=== PATIENT | male | born 1940 | race Caucasian/White ===

== ENCOUNTER → 2020-09-27 | Outpatient (CLI) | payer MEDICARE | LOC: MRI 10:15 | DX: R41.89 Other symptoms and signs involving cognitive functions and awareness (principal); Z86.79 Personal history of other diseases of the circulatory system; R41.3 Other amnesia; G30.9 Alzheimer's disease, unspecified; F01.50 Vascular dementia, unspecified severity, without behavioral disturbance, psychotic disturbance, mood disturbance, and anxiety | CPT/HCPCS: 70496; 70551; Q9963 ==

== ENCOUNTER → 2020-12-02 | Outpatient (CLI) | payer MEDICARE ==
[2020-12-02 09:55] LABS: RBC (AUTOMATED) 100 10^6 (0); WBC (AUTOMATED 6 10^3 (0-5)
[2020-12-02 09:59] LABS: GLUCOSE,CSF 72 mg/dL (50-80); TOTAL PROTEIN,CSF 72 mg/dL (20-45)
== END ==
LOC: RAD 08:00
PROVIDERS: Psychiatry & Neurology Neurology
DX: G30.0 Alzheimer's disease with early onset (principal); F02.80 Dementia in other diseases classified elsewhere, unspecified severity, without behavioral disturbance, psychotic disturbance, mood disturbance, and anxiety; G91.0 Communicating hydrocephalus; R41.89 Other symptoms and signs involving cognitive functions and awareness; R41.3 Other amnesia; Z86.79 Personal history of other diseases of the circulatory system
CPT/HCPCS: 82945; 84157; 87070; 87205; 89051; G0463